=== PATIENT | male | born 1990 | race African-American/Black ===

== ENCOUNTER 2021-12-20 08:39 | Emergency (ER) | payer BC, OTHER ==
[2021-12-20] MEDS ORDERED: Sodium Chloride 0.9% 10 ML Syringe FLUSH PRN (08:46)
[2021-12-20] MEDS ORDERED: Ondansetron 4 MG/2 ML SDV IVPUSH ONE (08:47)
[2021-12-20] MEDS ORDERED: Sodium Chloride 0.9% 1,000 ML IV ONE ×2 (08:48→10:04)
[2021-12-20] MEDS ORDERED: HYDROmorphone 1 MG/ML Syringe IVPUSH ONE (08:57)
[2021-12-20 09:40] LABS: ANION GAP 12.1 mmol/L (5-15); CHLORIDE,CL 104 mmol/L (98-107); SODIUM,NA 141 mmol/L (136-145)
[2021-12-20 09:50] LABS: ESTIMATED GFR 91 mL/min (>=60)
[2021-12-20] MEDS ORDERED: Sodium Chloride 0.9% 1,000 ML ONE (10:04)
[2021-12-20 10:14] LABS: RESPIRATORY SYNCYTIAL VIR NAA NEGATIVE (NEGATIVE)
[2021-12-20 10:15] LABS: CORONAVIRUS COVID-19 NAA NEGATIVE (NEGATIVE)
== END 2021-12-20 11:20 | disposition home or self-care (01) ==
LOC: KA.ED 08:39
DX: R10.84 Generalized abdominal pain (principal); R74.02 Elevation of levels of lactic acid dehydrogenase [LDH]; Z20.822 Contact with and (suspected) exposure to COVID-19
CPT/HCPCS: 0241U; 36415; 71045; 80053; 80307; 82150; 83605; 83690; 84484; 85025; 85379; 96361; 96374; 96375; 99284; 99284-25; J1170; J2405; J3490; J7030